=== PATIENT | male | born 1980 | race Caucasian/White ===

== ENCOUNTER 2017-03-28 22:21 | Emergency (ER) | payer OTHER ==
[~2017-03-28] VITALS: Ht 165.1 cm; Wt 63.5 kg
[~2017-03-28 22:21] MED LIST: ALBUTEROL 0.5ML INH; ALBUTEROL17 G1 IH; ALBUTEROL17 GM INH; AMOXICILLIN PO; COMBIVENT INH14.7 GM INH; EC-NAPROSYN500 MG PO; ERY-TAB500 MG PO; FLEXERIL PO; FLEXERIL10 M1 PO; FLEXERIL10 MG PO; FLONASE 0.05% N16 G1; IBUPROFEN PO; INHALER; LORTAB 5/500 TA1 TA2 PO; LORTAB 7.5-5001 TAB PO; MOTRIN20 MG/ML PO; ORUDIS75 M1 PO; PENICILLIN PO; PENICILLIN V P500 MG PO; PHENERGAN DM1 ML PO; PROMETHAZINE V240 ML PO; VOLTAREN75 MG PO; ZITHROMAX PO; ZITHROMAX1 G/PKT PO; ZYRTEC-D TABLE1 EACH PO
== END 2017-03-28 23:45 | disposition home or self-care (01) ==
LOC: CED 22:21 → CFTX 22:21
DX: S09.90XA Unspecified injury of head, initial encounter (principal); W45.0XXA Nail entering through skin, initial encounter; F17.210 Nicotine dependence, cigarettes, uncomplicated; J45.909 Unspecified asthma, uncomplicated; Y92.009 Unspecified place in unspecified non-institutional (private) residence as the place of occurrence of the external cause
CPT/HCPCS: 99283